=== PATIENT | male | born 1940 | race Hispanic/Latino ===

== ENCOUNTER 2022-07-20 08:32 | Emergency (ER) | payer MEDICARE, OTHER ==
[~2022-07-20] VITALS: Ht 165.1 cm; Wt 77.1 kg
[2022-07-20 08:34] VITALS: BP 159/79
[2022-07-20] MEDS ORDERED: OFLO5DRO21 OTIC (09:50)
== END 2022-07-20 09:57 | disposition home or self-care (01) ==
LOC: EDH 08:32
DX: H60.91 Unspecified otitis externa, right ear (principal); H74.39 Other acquired abnormalities of ear ossicles; I10 Essential (primary) hypertension; Z98.890 Other specified postprocedural states

== ENCOUNTER → 2023-11-25 | Outpatient (CLI) | payer OTHER ==
[~2023-11-25] MED LIST: ASPI-1005 PO; ATOR40TA69 PO; CLOP-31 PO; FAMO20TA8 PO
== END | disposition home or self-care (01) ==
LOC: RAH 08:00
PROVIDERS: ATTEND Internal Medicine Cardiovascular Disease
DX: Z13.6 Encounter for screening for cardiovascular disorders (principal); E78.5 Hyperlipidemia, unspecified
CPT/HCPCS: 75571

== ENCOUNTER → 2024-04-26 | Outpatient (CLI) | payer MEDICARE ==
--- NOTE | 2024-04-26 12:08 | HMCIMG ---
CHEST 2VWS REASON: THORACIC BACK PAIN COMPARISON: 02/10/2023 FINDINGS: Two views of the chest were obtained. Lungs are clear. Heart size is normal. There is no pulmonary vascular congestion. Mediastinum and bony thorax appear unremarkable. IMPRESSION: Normal two view chest x-ray.
--- NOTE | 2024-04-26 12:08 | HMCIMG ---
THORACIC SPINE 3VWS REASON: THORACIC BACK PAIN COMPARISON: None. TECHNIQUE: 3 images were obtained. FINDINGS: There are normal appearing vertebral bodies. Interspace heights are well preserved. There are anterior osteophytes visible in the midthoracic spine. There are no visible fractures. Soft tissues appear unremarkable. IMPRESSION: 1. Mild degenerative changes, no acute finding.
== END | disposition home or self-care (01) ==
LOC: RAH 11:00
PROVIDERS: ATTEND Internal Medicine
DX: M47.814 Spondylosis without myelopathy or radiculopathy, thoracic region (principal); M25.78 Osteophyte, vertebrae; M54.6 Pain in thoracic spine
CPT/HCPCS: 71046; 72072

== ENCOUNTER → 2024-09-23 | Outpatient (CLI) | payer MEDICARE ==
[~2024-09-23] MED LIST changes: +LIDOCAINE HCL 4% LTA SOL 4 ML VIAL TP ONE
== END | disposition home or self-care (01) ==
LOC: WHH 09:11
PROVIDERS: ATTEND Family Medicine
DX: T24.301A Burn of third degree of unspecified site of right lower limb, except ankle and foot, initial encounter (principal); T31.0 Burns involving less than 10% of body surface; I10 Essential (primary) hypertension; I73.9 Peripheral vascular disease, unspecified; Z85.46 Personal history of malignant neoplasm of prostate; W86.8XXA Exposure to other electric current, initial encounter; Y93.89 Activity, other specified; Y92.89 Other specified places as the place of occurrence of the external cause; Y99.8 Other external cause status
CPT/HCPCS: G0463; A4450

== ENCOUNTER → 2024-09-30 | Outpatient (CLI) | payer MEDICARE | END | disposition home or self-care (01) | LOC: WHH 09:04 | PROVIDERS: ATTEND Family Medicine | DX: T24.331D Burn of third degree of right lower leg, subsequent encounter (principal); T31.0 Burns involving less than 10% of body surface; I10 Essential (primary) hypertension; I73.9 Peripheral vascular disease, unspecified; Z85.46 Personal history of malignant neoplasm of prostate; W86.8XXD Exposure to other electric current, subsequent encounter | CPT/HCPCS: 16020; A4450; 11042 ==

== ENCOUNTER → 2024-10-07 | Outpatient (CLI) | payer MEDICARE | END | disposition home or self-care (01) | LOC: WHH 10:06 | PROVIDERS: ATTEND Family Medicine | DX: T24.301D Burn of third degree of unspecified site of right lower limb, except ankle and foot, subsequent encounter (principal); T31.0 Burns involving less than 10% of body surface; L97.812 Non-pressure chronic ulcer of other part of right lower leg with fat layer exposed; I10 Essential (primary) hypertension; I73.9 Peripheral vascular disease, unspecified; Z85.46 Personal history of malignant neoplasm of prostate; W86.8XXD Exposure to other electric current, subsequent encounter | CPT/HCPCS: 16020; A6212; 11042 ==

== ENCOUNTER → 2025-03-21 | Outpatient (CLI) | payer MEDICARE ==
[~2025-03-21] MED LIST changes: -LIDOCAINE HCL 4% LTA SOL 4 ML VIAL TP ONE
--- NOTE | 2025-03-21 11:18 | HMCIMG ---
EXAM: CT Abdomen and Pelvis Without IV contrast CLINICAL HISTORY: LEFT LOWER QUADRANT PAIN TECHNIQUE: Axial computed tomography images of the abdomen and pelvis without intravenous contrast. CONTRAST: No IV contrast. COMPARISON: None provided. FINDINGS: LUNG BASES: The lung bases appear clear. No pleural effusions are seen. LIVER: Unremarkable. GALLBLADDER AND BILE DUCTS: The gallbladder appears within normal limits. No radioopaque gallstones are seen. No biliary ductal dilatation is evident. PANCREAS: Unremarkable. SPLEEN: Unremarkable. ADRENAL GLANDS: Unremarkable. KIDNEYS, URETERS, AND BLADDER: Mild bilateral perinephric fat stranding is concerning for renal parenchymal disease. There is no hydronephrosis or hydroureter. No urinary calculi are seen. STOMACH AND BOWEL: Colonic diverticulosis without diverticulitis. Unremarkable appearance of the stomach and large bowel. No evidence of bowel obstruction. No evidence suggesting enteritis or colitis. Right sided inguinal hernia with fat herniation. 1.2 cm subcutaneous soft tissue area in the lower abdominal wall on left side. APPENDIX: No evidence of acute appendicitis on CT examination. PERITONEUM: No free fluid. No free air. LYMPH NODES: No lymphadenopathy is evident. REPRODUCTIVE: Unremarkable as visualized. VASCULATURE: Atherosclerotic changes in the form of eccentric vessel wall calcification in the abdominal aorta and its major branches. No evidence of abdominal aortic aneurysm. BONES: Degenerative changes in the visualized spine in the form of marginal osteophytes and degenerative discs at multiple lumbar levels. There are sclerotic foci within the sacrum, L3, L2, and T12 vertebrae that are concerning for metastatic disease. Recommend bone scan for further evaluation. No acute osseous pathology evident. IMPRESSION: 1. No acute intraabdominal or pelvic pathology. 2. Sclerotic foci within the sacrum, L3, L2, and T12 vertebrae, concerning for metastatic disease. Recommend bone scan for further evaluation. 3. Please see above for additional details and recommendations. /[place]
--- NOTE | 2025-03-21 17:15 | HMCIMG ---
EXAM: CR LUMBAR SPINE, 2-3 VIEWSCLINICAL HISTORY: Low back pain.COMPARISON: None providedTECHNIQUE: Frontal and lateral radiographs of the lumbar spine were obtained. FINDINGS: Vertebrae: Preserved vertebral body height. No fracture. Vertebral alignment: No spondylolisthesis. There is preservation of the normal lumbar lordosis. Minimal left side lumbar scoliotic tilt. Discs: Degenerative changes with multilevel lumbar disc spaces narrowing. Included abdomen: No pathologic calcifications observed. Included bowel gas pattern is non-obstructive. IMPRESSION: * Degenerative changes with multilevel lumbar disc spaces narrowing. * Minimal scoliosis convexity to the left. /[place]
== END | disposition home or self-care (01) ==
LOC: RAH 09:46
PROVIDERS: ATTEND Internal Medicine
DX: K40.90 Unilateral inguinal hernia, without obstruction or gangrene, not specified as recurrent (principal); K57.30 Diverticulosis of large intestine without perforation or abscess without bleeding; I70.0 Atherosclerosis of aorta; M47.817 Spondylosis without myelopathy or radiculopathy, lumbosacral region; M25.78 Osteophyte, vertebrae; M47.816 Spondylosis without myelopathy or radiculopathy, lumbar region; M48.061 Spinal stenosis, lumbar region without neurogenic claudication; M40.46 Postural lordosis, lumbar region; M54.50 Low back pain, unspecified; R10.32 Left lower quadrant pain; W19.XXXA Unspecified fall, initial encounter
CPT/HCPCS: 72100; 74176